=== PATIENT | female | born 1990 | race African-American/Black ===

== ENCOUNTER 2017-10-26 21:31 | Inpatient (IN) | payer OTHER ==
--- NOTE | 2017-10-26 17:21 | PDOC.LDHP ---
Labor and Delivery H&P Chief complaint: scheduled induction HPI: 27 yo @ 37w0d by first trimester sono who presents for IOL secondary to elevated S/D ratio noted, as recommended per MFM. Pt antepartum course complicated by h/o previable delivery due to presumed cervical incompetency vs PTL, therefore, pt has had cerclage and received 17 OHP during this . Cerclage removed on 10/21/17. Dating criteria: first trimester ultrasound Grav: 2 Para: 0 OB History Details: Previable @ 20 weeks Current complications: other (h/o cervical insufficency, s/p cerclage removal Elevated S/D ratio) Abnormal US findings: No Past Medical History: Denies Current medications: pre- vitamins Previous surgical history: none Allergies/Adverse Reactions: Allergies Allergy/AdvReac Type Severity Reaction Status Date / Time No Known Allergies Allergy Verified 05/03/17 13:08 Social history: none - Physical Exam Vital signs reviewed and normal: yes General: NAD Heart: RRR Lungs: nonlabored breathing Abdomen: gravid Extremeties: trace edema FHT: category 1 (140s, mod romaine, +accels, no decels) - Vaginal Exam cm dilated: 2 (Cook balloon placed, 60/50 cc) Effacement: 50% Station: -2 - OB Labs Blood type: O RH: positive Antibody Screen: negative HIV: negative RPR: negative HEPSAg: negative 1 hour GCT: unknown 3 hour GTT: unknown GBS: negative Urine drug screen: not done Rubella: immune Additional Labs: NIPT and msAFP wnl HbA1C wnl - Assessment 37w0d IUP IOL secondary to elevated S/D ratio on umbilical artery dopplers H/O cervical incompetency, s/p cerclage removal - Plan Plan: admit to L&D, cervical ripening, informed consent obtained, anesthesia consult for pain management -: s/p cytotec, cook balloon placed.
[~2017-10-26 21:31] MED LIST: Bupivacaine PF 0.5% 30 ML VIAL ONE
[2017-10-26 22:12] VITALS: BMI 39.6
[2017-10-26] MEDS ORDERED: LR / Pitocin 40 units/1000 ml 1,000 ML IV PRN (22:12)
[2017-10-26] MEDS ORDERED: Carboprost 250 MCG/ML AMP IM PRN (22:12)
[2017-10-26] MEDS ORDERED: Misoprostol 200 MCG TAB PR PRN (22:12)
[2017-10-26] MEDS ORDERED: Acetaminophen 500 MG TAB PO PRN (22:12)
[2017-10-26] MEDS ORDERED: Diphenoxylate HCl/Atropine Tablet PO PRN (22:12)
[2017-10-26] MEDS ORDERED: Ondansetron HCl/PF 4 MG/2 ML Vial IVP PRN (22:12)
[2017-10-26] MEDS ORDERED: Lidocaine 1% (PF) 30 ML VIAL SC PRN (22:12)
[2017-10-26] MEDS ORDERED: Methylergonovine 0.2 MG/ML VIAL IM PRN (22:12)
[2017-10-26] MEDS ORDERED: Ibuprofen 800 MG TAB PO PRN (22:12)
[2017-10-26] MEDS ORDERED: Promethazine HCl 25 MG/ML VIAL IM PRN (22:12)
[2017-10-26] MEDS ORDERED: HYDROcodone/Acetaminophen 5/325 mg Tablet PO PRN (22:12)
[2017-10-26] MEDS: Lactated Ringer's 1,000 ML IV SCH (22:56)
[2017-10-26 23:01] LABS: Mean Corpuscular HGB CONC 33.8 g/dL (32.0-36.0); Mean Corpuscular Volume 88.8 fl (81.0-99.0); Mean Platelet Volume 6.8 fL (7.4-10.4); Platelet Count 301 thou/uL (130-400); RBC Distribution Width 12.4 % (11.5-14.5); Red Blood Cell (RBC) Count 4.01 mill/uL (4.20-5.40)
[2017-10-26] MEDS: Misoprostol 100 MCG TAB VAG SCH (23:26)
[2017-10-26 23:33] LABS: HBSAg Index 0.18 S/CO (0-0.99); HIV (1/2) Antibody/Antigen Non-Reactive (NonReactive); HIV 1/2 INDEX 0.15 S/CO (<1.00); Hep B Surf Ag Non-Reactive S/CO (NonReactive); Syphilis Antibody Nonreactive (Nonreactive); Syphilis Antibody Index 0.03 S/CO (<1.00 Non-Reactive)
[2017-10-27] MEDS: Misoprostol 100 MCG TAB VAG SCH ×7 (02:37→23:07)
[2017-10-27] MEDS: Lactated Ringer's 1,000 ML IV SCH ×4 (03:38→19:55)
[2017-10-27] MEDS ORDERED: LR 500 ML/Oxytocin 10 units 500 ML IV SCH (07:00)
[2017-10-27] MEDS ORDERED: Bupivacaine 0.5% 20 ML, Fentanyl 400 MCG in Sodium Chloride 0.9% 72 ML EPIDURAL SCH (11:15)
[2017-10-27] MEDS ORDERED: diphenhydrAMINE 50 MG/ML VIAL IVP PRN ×2 (12:18→22:24)
[2017-10-27] MEDS ORDERED: Naloxone HCl 0.4 mg/ml Vial IVP PRN ×4 (12:18→22:24)
[2017-10-27] MEDS ORDERED: Ondansetron HCl/PF 4 MG/2 ML Vial IVP PRN ×3 (12:18→22:24)
[2017-10-27] MEDS ORDERED: Lactated Ringer's 500 ML IV PRN (12:18)
[2017-10-27] MEDS ORDERED: ePHEDrine/0.9% NaCl/PF SYRINGE 50 mg/10 ml SLOW IVP PRN (12:18)
[2017-10-27] MEDS ORDERED: Acetaminophen 325 MG TAB PO PRN (12:18)
[2017-10-27] MEDS ORDERED: Promethazine HCl 25 MG/ML VIAL IM PRN ×2 (12:18→22:24)
[2017-10-27] MEDS ORDERED: Eucerin (Mineral Oil/Petrolatum,White) 30 gm Jar TOP PRN ×2 (12:18→22:24)
[2017-10-27] MEDS ORDERED: Fentanyl 4mcg/Marcaine 0.1% Cassette 100 ML EPIDURAL SCH (12:30)
[2017-10-27] MEDS ORDERED: Communication Order-Pharmacy FS SCH ×2 (12:30→22:30)
--- NOTE | 2017-10-27 13:46 | PDOC.LDPN ---
Labor & Delivery Progress Note - Subjective Subjective: comfortable - Objective Vital signs reviewed and normal: yes General: NAD Uterine fundus: non tender SVE: cephalic Dilation: 6 Effacement: 75% Station: -2 FHT: category 2 (130s, mod romaine, +accels, occasional small variable decel) [place] contractions every: q2-5 min AROM: clear fluid - Assessment (1) 37 weeks gestation of Code(s): Z3A.37 - 37 WEEKS GESTATION OF Current Visit: Yes Status : Acute (2) Cervical incompetence Code(s): N88.3 - INCOMPETENCE OF CERVIX UTERI Current Visit: Yes Status: Acute Plan: continue plan of care, pitocin for augmentation
--- NOTE | 2017-10-27 17:22 | PDOC.LDPN ---
Labor & Delivery Progress Note - Subjective Subjective: comfortable - Objective Vital signs reviewed and normal: yes General: NAD Uterine fundus: non tender Dilation: 6 Effacement: 75% Station: -2 FHT: category 2 (130s, mod romaine, +accels, occasional late decels ) [place] contractions every: q2-3 min Resuscitative measures: maternal oxygen, maternal IV fluids, maternal position change - Assessment (1) 37 weeks gestation of Code(s): Z3A.37 - 37 WEEKS GESTATION OF Current Visit: Yes Status : Acute (2) Cervical incompetence Code(s): N88.3 - INCOMPETENCE OF CERVIX UTERI Current Visit: Yes Status: Acute Plan: continue plan of care, pitocin for augmentation, resuscitative measures -: HR responded to position changes, IVF and O2 Pitocin decreased Continue to monitor. No change in SVE since last exam with good MVUs at this time. Suspect possible OP position. Continue position changes.
[2017-10-27] MEDS ORDERED: CEFAZOLIN/Water 2 GM/20 ML SYRINGE ONE (21:03)
[2017-10-27] MEDS ORDERED: Bicitra 30 ML UDCUP ONE (21:03)
--- NOTE | 2017-10-27 21:29 | PDOC.LDPN ---
Labor & Delivery Progress Note - Subjective Subjective: comfortable - Objective Vital signs reviewed and normal: yes General: NAD Uterine fundus: non tender SVE: possible OP position Dilation: 6 Effacement: 75% Station: -1 FHT: category 2 (130s, mod romaine, +accels, late decels with several ctx ) [place] contractions every: q3-4 min after pitocin discontinued - Assessment (1) 37 weeks gestation of Code(s): Z3A.37 - 37 WEEKS GESTATION OF Current Visit: Yes Status : Acute (2) Cervical incompetence Code(s): N88.3 - INCOMPETENCE OF CERVIX UTERI Current Visit: Yes Status: Acute -: Reviewed with pt that she has not made cervical change in 8 hours with > 6 hours of monitored adequate MVUs. Cat 2 FHTs leading to d/c of pitocin. Recommended PLTCS due to arrest of dilation and cat 2 strip. Pt amenable. TO OR. Anesthesia notified.
[2017-10-27] MEDS ORDERED: Oxytocin 10 UNITS/ML VIAL ONE ×2 (21:42→22:30)
[2017-10-27] MEDS ORDERED: Ondansetron HCl/PF 4 MG/2 ML Vial ONE (21:42)
[2017-10-27] MEDS ORDERED: Morphine PF 1 MG/ML SYR ONE (22:16)
[2017-10-27] MEDS ORDERED: HYDROmorphone 2 MG/ML VIAL SLOW IVP PRN (22:24)
[2017-10-27] MEDS ORDERED: Meperidine HCl/PF 25 MG/ML VIAL SLOW IVP PRN (22:24)
[2017-10-27] MEDS ORDERED: Promethazine HCl 25 MG SUPP PR PRN (22:24)
[2017-10-27] MEDS ORDERED: Naloxone HCl 0.4 mg/ml Vial IV PRN (22:24)
[2017-10-27] MEDS ORDERED: Ketorolac Tromethamine 30 MG/ML VIAL IVP SCH (22:30)
[2017-10-27 22:40] LABS: Actual Bicarbonate (HCO3a) 23.8 mEq/L (22-26)
--- NOTE | 2017-10-27 22:46 | PDOC.OPDEL ---
OB Operative/Delivery Note Delivery Dr/Surgeon: Luanne Anguiano DO Assist: Arturo Gudino MD Pre-Delivery Diagnosis: arrest of dilation, other Procedure/Post Delivery Dx: primary low transverse CS Weeks gestation: 37 Anesthesia: epidural - Findings A Sex: female - 1 min: 8 - 5 min: 9 - Additional Findings/Plan Placenta delivered: spontaneous findings: low transverse hysterotomy without extension, normal uterus, normal tubes, normal ovaries, other (infant in OP position) Estimated blood loss: 600 cc Post delivery plan: routine recovery (Dictation # [id number])
[2017-10-27] MEDS ORDERED: Ketorolac Tromethamine 30 MG/ML VIAL ONE (23:25)
[2017-10-27] MEDS: Ketorolac Tromethamine 30 MG/ML VIAL IVP PRN (23:30)
--- NOTE | 2017-10-27 23:31 | OP ---
Documentation that I was first aid attendant on a primary for a failed induction. PRIMARY OB: Luanne Anguiano D.O. who was the primary surgeon.
[2017-10-28] MEDS ORDERED: Bisacodyl 10 MG SUPP PR PRN (00:49)
[2017-10-28] MEDS ORDERED: Methylergonovine 0.2 MG/ML VIAL IM PRN (00:49)
[2017-10-28] MEDS ORDERED: Simethicone Chewable 80 MG TAB PO PRN (00:49)
[2017-10-28] MEDS ORDERED: Meperidine HCl/PF 25 MG/ML VIAL IM PRN (00:49)
[2017-10-28] MEDS ORDERED: LR w/ Pitocin 40 units/1000 ML BAG IV SCH (00:49)
[2017-10-28] MEDS ORDERED: HYDROcodone/Acetaminophen 5/325 mg Tablet PO PRN (00:49)
[2017-10-28] MEDS ORDERED: Misoprostol 200 MCG TAB PR SCH (01:00)
[2017-10-28] MEDS ORDERED: Acetaminophen 1,000 MG in Premix Bag 1 BAG IVPB SCH (02:30)
[2017-10-28] MEDS: Ketorolac Tromethamine 30 MG/ML VIAL IVP PRN ×2 (04:57→12:53)
[2017-10-28 05:51] LABS: #Eosinphils 0.1 thou/uL (0.0-0.7); #Lymphocytes 1.8 thou/uL (1.20-3.40); #Neutrophils 15.2 thou/uL (1.40-6.50); %Basophils 0.2 % (0.0-1.0); %Eosinophils 0.4 % (0.0-10.0); %Monocytes 5.7 % (0.0-10.0); %Neutrophils 83.7 % (42.0-75.0); Hemoglobin 10.7 g/dL (12.0-16.0); Mean Corpuscular HGB CONC 33.7 g/dL (32.0-36.0); Mean Corpuscular Hemoglobin 29.9 pg (27.0-31.0); Mean Corpuscular Volume 88.9 fl (81.0-99.0); Platelet Count 277 thou/uL (130-400); RBC Distribution Width 12.5 % (11.5-14.5); Red Blood Cell (RBC) Count 3.58 mill/uL (4.20-5.40); White Blood Cell (WBC) Count 18.2 thou/uL (4.8-10.8)
[2017-10-28] MEDS: Lactated Ringer's 1,000 ML IV SCH (06:01)
--- NOTE | 2017-10-28 06:18 | OP ---
PREOPERATIVE DIAGNOSES: 1. A 37-week 1 day intrauterine . 2. History of cervical incompetency status post cerclage removal. 3. Abnormal umbilical artery Dopplers within elevated S/D ratio. 4. Failed induction. 5. Arrest of dilation. 6. Suspected malposition. POSTOPERATIVE DIAGOSES: 1. A 37-week 1 day intrauterine . 2. History of cervical incompetency status post cerclage removal. 3. Abnormal umbilical artery Dopplers within elevated S/D ratio. 4. Failed induction. 5. Arrest of dilation. 6. Occiput posterior position. PROCEDURE: Primary low transverse delivery via Pfannenstiel skin incision. SURGEON: Luanne Anguiano D.O. BOXCAR WEIGHER: Mika Gudino M.D. COMPLICATIONS: None. ESTIMATED BLOOD LOSS: 600 mL IV FLUIDS: 1000 mL FINDINGS: A normal appearing uterus, fallopian tubes and ovaries bilaterally. Clear amniotic fluid. Viable female infant in cephalic presentation, occiput posterior position with Apgars 8 and 9 weighing 5lb 15 oz. Normal appearing placenta. INDICATIONS FOR THE PROCEDURE: Ms. Kelly Mak is a 27-year-old who was admitted at 37 weeks and 0 days due to an abnormal umbilical artery Doppler with elevated S/D ratio found by the Maternal Medicine physician who recommended induction at 37 weeks. Patient's antepartum course was complicated by history of 20-week previable delivery due to either cervical incompetency or labor. The patient was counseled by Maternal Medicine and a history indicated cerclage and 17-hydroxyprogesterone. The patient had cerclage removed at 36 weeks and she presented for her induction at 37 weeks. The patient underwent an induction and advanced into active labor. She remained 6 cm for approximately 8 hours, six of which had adequate MVUs documented using an intrauterine pressure catheter. The patient was counseled and due to arrest of dilation at 6 cm, a primary delivery was recommended. It was thought that the baby is likely in occiput posterior position on examination contributing to arrest of dilation and the patient was amenable to the procedure. PROCEDURE IN DETAIL: The patient was brought to the operating room and she had previously had an epidural, which was additionally dosed. The patient was placed in supine position using a leftward tilt. A Arias catheter was placed. She received the Ancef preoperatively. She was prepped and draped in the sterile fashion. An official time out was performed. Anesthesia was assessed and proved to be adequate. A Pfannenstiel skin incision was made using the scalpel. This was carried down to the underlying fascial layer. The fascia was incised in the midline using the scalpel and extended bilaterally using Dinero scissors. Superior aspect of the fascial incision was grasped using Alee clamps, tented upward and dissected free from the underlying rectus abdominis muscles. The same was performed to the inferior aspect of the fascial incision. The rectus abdominis muscles were bluntly. The peritoneum was entered bluntly. The peritoneal incision was extended using both blunt and sharp dissection. An Jordan O retractor was placed into the abdomen. A bladder flap was created using Metzenbaum scissors. A low transverse hysterotomy was made using the scalpel. The hysterotomy was extended using blunt dissection. Amniotic membranes were ruptured and clear amniotic fluid. was delivered in cephalic presentation, occiput posterior position. The infant's cord was clamped and cut. The was handed to the waiting Neonatology team. Cord sample and cord blood were obtained. Placenta was delivered spontaneously intact. The uterus was cleared of all clot and debris. Hysterotomy was closed in a running locking fashion using #1 Monocryl creating hemostasis with areas along the edge of the bladder flap where coagulation using the Bovie was performed for hemostasis. The pelvis was irrigated and cleared of all clot and debris. The ovaries and fallopian tubes were evaluated and appeared normal. Jordan O retractor was removed from the abdomen. The peritoneum was closed in a running fashion using 3-0 Vicryl. Rectus abdominis muscles were evaluated hemostatic. The fascia was closed in a running fashion using 0 PDS. The subcutaneous layer was copiously irrigated, hemostatic with use of Bovie. Subcutaneous layer was closed using 3-0 Vicryl and the skin was closed using Monocryl and Dermabond. The patient tolerated procedure well. There were no complications. All counts were correct x3. Mother and infant were transferred to routine recovery. [facility]
[2017-10-28] MEDS: Ferrous Sulfate 325 MG TAB PO SCH ×2 (07:34→19:43)
--- NOTE | 2017-10-28 08:24 | PDOC.PP ---
Post Progress Note Post Day #: 1 Subjective: Doing well. Pain controlled, Moderate lochia. PO intake tolerated: yes Flatus: yes Ambulation: yes Vital Signs (12 hours) Temp Pulse Resp BP 10/28/17 03:14 98.6 F 79 16 107/51 L 10/28/17 02:00 76 18 116/56 L 10/28/17 01:00 98.7 F 93 16 120/59 L Weight Weight 217 lb - Physical Examination General: NAD Cardiovascular: RRR Respiratory: non-labored breathing Abdominal: + bowel sounds, appropriately TTP Deviation from normal: minimal distention Fundus firm & at: below umbilicus Extremities: negative homans (B) Skin: CS incision dry & intact Neurological: no gross focal deficits Psychiatric: A&Ox3 Result Diagrams: 10/28/17 05:11 Additional Labs: Post Labs Blood Type O POSITIVE 10/26/17 22:39 Hep Bs Antigen Non-Reactive S/CO (NonReactive) 10/26/17 22:39 (1) 37 weeks gestation of Code(s): Z3A.37 - 37 WEEKS GESTATION OF Status: Resolved (2) Cervical incompetence Code(s): N88.3 - INCOMPETENCE OF CERVIX UTERI Status: Resolved (3) delivery delivered Code(s): O82 - ENCOUNTER FOR DELIVERY WITHOUT INDICATION Status: Acute - Assessment/Plan Doing well post . No complaints. Noted leukocytosis, however, also noted on admission. No signs if infection, afebrile. Plan for d/c in 2-3 days due to CS.
[2017-10-28] MEDS: Prenatal Vitamin 1 TAB PO SCH (09:22)
[2017-10-28] MEDS: Docusate Calcium (SURFAK) 240 MG CAP PO SCH ×2 (09:22→22:27)
[2017-10-28] MEDS ORDERED: FLU VACC QS2017-18 36 mo. & older 0.5 ML SYRINGE IM ONE (13:30)
[2017-10-28] MEDS: HYDROcodone/Acetaminophen 5/325 mg Tablet PO PRN ×2 (15:11→20:03)
[2017-10-29] MEDS: Lactated Ringer's 1,000 ML IV SCH ×3 (00:19→21:19)
[2017-10-29] MEDS: HYDROcodone/Acetaminophen 5/325 mg Tablet PO PRN ×4 (00:20→21:43)
[2017-10-29] MEDS: Ibuprofen 800 MG TAB PO SCH ×3 (05:29→21:42)
--- NOTE | 2017-10-29 07:10 | PDOC.PP ---
Post Progress Note Post Day #: 2 Subjective: Doing well, no complaints. Pain well controlled with [place]. PO intake tolerated: yes Flatus: yes Ambulation: yes Vital Signs (12 hours) Temp Pulse Resp BP BP 10/29/17 03:18 98 F 85 18 10/29/17 02:45 98 F 85 18 127/74 10/29/17 00:21 98 F 81 18 109/61 10/29/17 00:20 98 F 81 18 10/28/17 20:00 99.0 F 93 16 121/62 Weight Weight 217 lb - Physical Examination Respiratory: non-labored breathing Abdominal: lochia (normal), no distention, appropriately TTP Fundus firm & at: U-4 Extremities: negative homans (B) Skin: CS incision dry & intact, no rash Neurological: no gross focal deficits Psychiatric: A&Ox3, normal affect Result Diagrams: 10/28/17 05:11 Additional Labs: Post Labs Blood Type O POSITIVE 10/26/17 22:39 Hep Bs Antigen Non-Reactive S/CO (NonReactive) 10/26/17 22:39 (1) delivery delivered Code(s): O82 - ENCOUNTER FOR DELIVERY WITHOUT INDICATION Status: Acute - Assessment/Plan Doing well. Continue routine postop care.
[2017-10-29] MEDS: Docusate Calcium (SURFAK) 240 MG CAP PO SCH ×2 (08:25→21:42)
[2017-10-29] MEDS: Prenatal Vitamin 1 TAB PO SCH (08:25)
[2017-10-29] MEDS: Ferrous Sulfate 325 MG TAB PO SCH ×2 (10:28→16:50)
[2017-10-29 19:22] VITALS: TEMP 98.5
[2017-10-30] MEDS: HYDROcodone/Acetaminophen 5/325 mg Tablet PO PRN ×2 (04:15→08:40)
[2017-10-30] MEDS: Lactated Ringer's 1,000 ML IV SCH (05:37)
[2017-10-30] MEDS: Ibuprofen 800 MG TAB PO SCH (05:53)
--- NOTE | 2017-10-30 06:18 | PDOC.PP ---
Post Progress Note Post Day #: POD#3 Subjective: No c/o. Tolerating a regular diet. ready for home. PO intake tolerated: yes Flatus: yes Ambulation: yes Vital Signs (12 hours) Temp Pulse Resp BP 10/29/17 20:00 98.5 F 100 16 10/29/17 19:00 98.5 F 100 16 136/78 Weight Weight 98.43 kg - Physical Examination General: NAD Abdominal: no distention Extremities: negative homans (B) Skin: CS incision dry & intact Psychiatric: A&Ox3, normal affect Result Diagrams: 10/28/17 05:11 Additional Labs: Post Labs Blood Type O POSITIVE 10/26/17 22:39 Hep Bs Antigen Non-Reactive S/CO (NonReactive) 10/26/17 22:39 Rubella IgG Antibody 5.44 index (Immune >0.99) 10/26/17 22:39 - Assessment/Plan DC home. Precautions given. Has appt. for 2 weeks.
[2017-10-30] MEDS: Ferrous Sulfate 325 MG TAB PO SCH (07:20)
[2017-10-30] MEDS: Docusate Calcium (SURFAK) 240 MG CAP PO SCH (08:40)
[2017-10-30] MEDS: Prenatal Vitamin 1 TAB PO SCH (08:40)
[2017-10-30 09:21] VITALS: BP 127/71
[2017-10-30] MEDS ORDERED: Adacel (T-DAP) 0.5 ML VIAL IM ONE (11:15)
== END 2017-10-30 12:20 | disposition home or self-care (01) | DRG 765 ==
LOC: L&D 21:31 → 3SW 10-28 00:57
PROVIDERS: ADMIT Obstetrics & Gynecology; ATTEND Obstetrics & Gynecology
PROC: 10D00Z1 Extraction of Products of Conception, Low, Open Approach (ICD-10-PCS; principal; 2017-10-27)
PROC: 0U7C7ZZ Dilation of Cervix, Via Natural or Artificial Opening (ICD-10-PCS; 2017-10-27)
PROC: 3E0P7VZ Introduction of Hormone into Female Reproductive, Via Natural or Artificial Opening (ICD-10-PCS; 2017-10-27)
DX: O65.5 Obstructed labor due to abnormality of maternal pelvic organs (principal); O34.33 Maternal care for cervical incompetence, third trimester; O61.0 Failed medical induction of labor; O62.0 Primary inadequate contractions; Z3A.37 37 weeks gestation of pregnancy; Z37.0 Single live birth; Z23 Encounter for immunization
CPT/HCPCS: 36415; 51702; 82805; 85025; 85027; 86762; 86780; 86850; 86900; 86901; 87340; 87389; 88307; 90471; 90682; 90715; C1726; G0008; J0131; J0595; J1885; J2274; J2405; J2590; J3010; J3490; J7050; J7120; Q2036; S0020

== ENCOUNTER 2019-08-14 07:13 | Emergency (ER) | payer OTHER ==
[2019-08-14] MEDS ORDERED: Dicyclomine 20 MG TAB ONE (08:18)
[2019-08-14] MEDS ORDERED: Ondansetron ODT 4 MG TAB ONE (08:18)
== END 2019-08-14 08:31 | disposition home or self-care (01) ==
LOC: ERS 07:13
DX: J06.9 Acute upper respiratory infection, unspecified (principal); R19.7 Diarrhea, unspecified; J45.909 Unspecified asthma, uncomplicated
CPT/HCPCS: 87804; 99284; Q0162

== ENCOUNTER 2019-09-13 14:12 | Emergency (ER) | payer OTHER, SELFPAY ==
[2019-09-13] MEDS ORDERED: Proparacaine 0.5% Opth 15 ML BOT ONE (15:00)
[2019-09-13] MEDS ORDERED: Fluorescein Opthalmic Strip ONE (15:00)
[2019-09-13] MEDS ORDERED: Acetaminophen 500 MG TAB ONE (15:44)
--- NOTE | 2019-09-13 15:57 | CT ---
CT maxillofacial noncontrast: DATE: 09/13/2019 HISTORY: 29-year-old female status post blunt trauma to right eye resulting in right eye pain and right pleura l effusion. FINDINGS: Mild right infraorbital superficial soft tissue swelling. No intraorbital edema, hematoma, gas, or ma ss effect. No abnormality of orbits, extraocular muscles, or optic nerves identified, within the limitations of a noncontrast CT rather than MRI. No fracture of the orbital deras, rims, floors, orbi huey roofs. Paranasal sinuses are clear. No fracture of any facial bones including mandible and zygomatic arches. IMPRESSION: 1. Minimal right infraorbital superficial soft tissue contusion. 2. Otherwise normal.
== END 2019-09-13 16:23 | disposition home or self-care (01) ==
LOC: ERS 14:12
DX: H11.31 Conjunctival hemorrhage, right eye (principal); J45.909 Unspecified asthma, uncomplicated; F41.9 Anxiety disorder, unspecified
CPT/HCPCS: 70486

== ENCOUNTER 2023-01-15 15:34 | Emergency (ER) | payer OTHER ==
[2023-01-15] MEDS ORDERED: Lidocaine 1% w/Epinephrine 1:100K 20 ML VIAL ONE (16:32)
== END 2023-01-15 17:25 | disposition home or self-care (01) ==
LOC: ERS 15:34
DX: L72.3 Sebaceous cyst (principal); L03.818 Cellulitis of other sites
CPT/HCPCS: 10060

== ENCOUNTER 2023-11-09 11:43 | Emergency (ER) | payer OTHER | END 2023-11-09 14:35 | disposition home or self-care (01) | LOC: ERS 11:43 | DX: S09.90XA Unspecified injury of head, initial encounter (principal); S16.1XXA Strain of muscle, fascia and tendon at neck level, initial encounter; M54.50 Low back pain, unspecified; F17.210 Nicotine dependence, cigarettes, uncomplicated; V43.03XA Car driver injured in collision with pick-up truck in nontraffic accident, initial encounter; Y93.89 Activity, other specified; Z55.6 Problems related to health literacy | CPT/HCPCS: 70450; 72100; 72125 ==

== ENCOUNTER 2024-03-23 16:44 | Emergency (ER) | payer OTHER ==
[2024-03-23] MEDS ORDERED: Ketorolac Tromethamine 30 MG (1 mL) VIAL ONE (18:41)
== END 2024-03-23 19:35 | disposition home or self-care (01) ==
LOC: ERS 16:44
DX: S06.0X0A Concussion without loss of consciousness, initial encounter (principal); Z87.891 Personal history of nicotine dependence; V89.2XXA Person injured in unspecified motor-vehicle accident, traffic, initial encounter
CPT/HCPCS: 70450; J1885